=== PATIENT | male | born 1990 | race Caucasian/White ===

== ENCOUNTER 2021-01-29 21:54 | Emergency (ER) | payer SELFPAY ==
[~2021-01-29] VITALS: Ht 157.5 cm; Wt 62.0 kg
[2021-01-30] MEDS ORDERED: IBUPROFEN 600MG TABLET PO ONE (00:15)
[2021-01-30] MEDS ORDERED: TETANUS, DIPHTHERIA, PERTUSSIS VAC/PF 0.5ML (>7YR OLD) IM ONE (00:30)
[2021-01-30] MEDS ORDERED: NEOM28.37 TP (00:31)
[2021-01-30] MEDS ORDERED: IBUP-2029 MT (00:31)
[2021-01-30] MEDS ORDERED: BACITRACIN ZINC OINT UDPKT TOP ONE (00:45)
[2021-01-30 00:46] VITALS: BP 128/84
== END 2021-01-30 00:52 | disposition home or self-care (01) ==
LOC: ER 21:54
DX: T24.012A Burn of unspecified degree of left thigh, initial encounter (principal); X10.0XXA Contact with hot drinks, initial encounter; Y93.89 Activity, other specified; Y92.89 Other specified places as the place of occurrence of the external cause
CPT/HCPCS: 90471; 90715; 99283